=== PATIENT | male | born 1995 | race Caucasian/White ===

== ENCOUNTER 2017-07-06 07:48 | Inpatient (IN) ==
[2017-07-06] MEDS ORDERED: DIPH/TET/ACEL PERT BOOSTER VACCINE 0.5 ML VIAL IM ONE ×2 (07:52→09:03)
[2017-07-06] MEDS ORDERED: LACTATED RINGERS 1,000 ML IV STA (07:52)
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
[2017-07-06 08:11] LABS: Basophils # 0.1 10*3/uL (0.0-0.2); Basophils % 0.2 % (0.0-0.8); Hematocrit 41.6 VOL% (42.0-52.0); Hemoglobin 14.2 GM/DL (14.0-18.0); Immature Granulocytes % 0.9 %; Immature Granulocytes Absolute 0.24 #; Lymphocytes # 0.9 10*3/uL (1.4-4.0); Lymphocytes % 3.4 % (21.2-54.2); Mean Corpuscular HGB Conc 34.1 GM/DL (32-36); Mean Corpuscular Hemoglobin 29 PG (27-34); Mean Corpuscular Volume 84.7 FL (87-102); Mean Platelet Volume 10.1 FL (9.6-12.0); Monocytes # 1.9 10*3/uL (0.11-0.8); Monocytes % 7.4 % (1.7-12.7); Neutrophils # 22.5 10*3/uL (1.4-7.4); Neutrophils % 88.1 % (38.7-73.9); Platelet Count 271 T/CUMM (130-400); Red Blood Count 4.91 MC/CUMM (3.8-5.5); Red Cell Distribution Width 13.8 % (9.3-17.3); White Blood Count 25.6 T/CUMM (4-12)
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
[2017-07-06 08:37] LABS: INR 1.1; PT Patient Result 11.4 SECS; Partial Thromboplastin Time 22.9 SECS (0-40)
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
[2017-07-06 08:39] LABS: Band Neutrophils 5 % (0-10); Hypochromasia Slight; Lymphocytes 4 % (20-55); Platelet Estimate Adequate; Segmented Neutrophils 84 % (50-85); Total Cells Counted 100
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
[2017-07-06] MEDS ORDERED: SODIUM CHLORIDE 0.9% 1,000 ML IV STA (08:49)
[2017-07-06 08:52] LABS: ABG Base Excess -8.2 MMOL/L (-2.5-2.5); ABG HCO3 17.5 MMOL/L (20-26); ABG Oxygen Saturation 80.3 % (95-100); ABG PH 7.262 (7.35-7.45); ABG PO2 52.8 MM HG (80-95); ABG TCO2 16.7 MMOL/L (23-27)
[2017-07-06 08:55] LABS: Albumin 4.1 G/DL (3.4-5.0); Bilirubin,Total 0.4 MG/DL (0.2-1.0); Calcium 8.8 MG/DL (8.5-10.1); Osmolality,Calculated 284.4 MOS/KG (273-304); Potassium 4.1 MMOL/L (3.5-5.1); Total Protein 7.5 G/DL (6.4-8.3)
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
[2017-07-06 09:32] LABS: Amorphous Crystals,Urine Occasional /HPF (Few); Apearance,Urine Slightly Hazy (Clear); Bacteria,Urine Few /HPF (Few); Bilirubin,Urine Negative (Negative); Blood, Urine Moderate mg/dL (Negative); Glucose,Urine (UA) Negative (Negative); Ketones,Urine Negative (Negative); Nitrite,Urine Negative (Negative); Protein,Urine 100 MG/DL; RBC,Urine 61 /HPF (0-4); Urine Color Red (Yellow); Urine Specific Gravity 1.006 (1.001-1.035); Urine Urobilinogen < 2.0 EU/DL (0.2-1.0)
[2017-07-06 09:35] LABS: Barbiturates Screen,Urine Negative (Negative); Benzodiazepines Screen,Urine Negative (Negative); Cannabinoid Screen,Urine Negative (Negative); Opiate Screen,Urine Negative (Negative); Phencyclidine Screen,Urine Negative (Negative)
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
[2017-07-06] MEDS ORDERED: SODIUM CHLORIDE 0.9% 250 ML IV PRN (10:42)
[2017-07-06] MEDS: SODIUM CHLORIDE 0.9% 1,000 ML IV SCH ×2 (10:51→18:49)
[2017-07-06] MEDS: HYDROmorphone 2 MG/1 ML VIAL IV PRN ×3 (11:51→17:28)
[2017-07-06] MEDS: KETOROLAC 30 MG/1 ML VIAL IV SCH ×2 (11:51→17:28)
[2017-07-06 12:53] LABS: ABG Base Excess -1.2 MMOL/L (-2.5-2.5); ABG HCO3 23.3 MMOL/L (20-26); ABG Oxygen Saturation 95.9 % (95-100); ABG PCO2 38.8 MM HG (35-48); ABG PO2 81.9 MM HG (80-95); ABG TCO2 20.9 MMOL/L (23-27)
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
--- NOTE | 2017-07-06 19:14 | XRay Report ---
Exam: XR chest 1V portable Indication: Bilateral pneumonia Comparison study: Prior radiograph 07/06/2017 at 11:08 AM Findings: Similar appearance of the chest with patchy left more so than right basilar opacities. Tiny right apical pneumothorax is again suspected, unchanged. Previously noted left rib fractures are not well visualized sonographically. Impression: No significant change from prior. PROCEDURE INTERPRETED AT [facility] DEPARTMENT OF RADIOLOGY Final Report Signed by: Anibal Ko
[2017-07-07] MEDS: KETOROLAC 30 MG/1 ML VIAL IV SCH ×5 (00:05→22:43)
[2017-07-07] MEDS: SODIUM CHLORIDE 0.9% 1,000 ML IV SCH (02:50)
[2017-07-07 02:51] LABS: Basophils % 0.3 % (0.0-0.8); Eosinophils # 0.2 10*3/uL (0.0-0.87); Eosinophils % 2.7 % (0.00-10.9); Hematocrit 29.4 VOL% (42.0-52.0); Hemoglobin 10.2 GM/DL (14.0-18.0); Immature Granulocytes % 0.6 %; Immature Granulocytes Absolute 0.05 #; Lymphocytes # 1.7 10*3/uL (1.4-4.0); Mean Corpuscular HGB Conc 34.7 GM/DL (32-36); Mean Corpuscular Hemoglobin 29 PG (27-34); Mean Corpuscular Volume 84.5 FL (87-102); Mean Platelet Volume 10.4 FL (9.6-12.0); Monocytes # 0.7 10*3/uL (0.11-0.8); Monocytes % 7.9 % (1.7-12.7); Neutrophils # 6.1 10*3/uL (1.4-7.4); Neutrophils % 69.5 % (38.7-73.9); Platelet Count 142 T/CUMM (130-400); Red Blood Count 3.48 MC/CUMM (3.8-5.5); Red Cell Distribution Width 14.2 % (9.3-17.3); White Blood Count 8.7 T/CUMM (4-12)
[2017-07-07 03:26] LABS: Calcium 7.7 MG/DL (8.5-10.1); Magnesium 2.2 MG/DL (1.8-2.4); Osmolality,Calculated 278.5 MOS/KG (273-304); Potassium 4.1 MMOL/L (3.5-5.1)
[2017-07-07] MEDS: HYDROmorphone 2 MG/1 ML VIAL IV PRN ×3 (08:35→20:31)
--- NOTE | 2017-07-07 08:36 | XRay Report ---
Exam: XR chest 1V portable Date: 07/07/2017 4:00 AM Indication: Pneumothorax follow-up pulmonary contusion Comparison: 07/06/2017 Technical: AP Findings: Alveolar densities are present in the lower two thirds of the left chest. No significant pneumothorax present on the left with a tiny right apical pneumothorax present. The heart is normal in size. Mediastinum is otherwise intact. Mild pulmonary contusion alveolar density in the right perihilar region. Impression: 1. Bilateral pulmonary contusions appears similar to previous study 2. No increase in the pneumothoraces present in the left chest pneumothorax is not clearly visualized today. There is less than 1% and the right apex. 3. The left rib fractures demonstrated on CT are not well seen PROCEDURE INTERPRETED AT [facility] DEPARTMENT OF RADIOLOGY Final Report Signed by: Dr. Karri Chacon
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
[2017-07-07] MEDS: BACITRACIN OINT 28.35 GM TUBE TOP SCH (12:14)
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
[2017-07-08] MEDS: KETOROLAC 30 MG/1 ML VIAL IV SCH ×4 (06:28→23:26)
[2017-07-08] MEDS: BACITRACIN OINT 28.35 GM TUBE TOP SCH (08:47)
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
--- NOTE | 2017-07-08 14:20 | XRay Report ---
History: Pneumothorax Date: 07/08/2017 Study: Chest x-ray PA and lateral Comparison exam: 07/07/2017 There is miniscule bilateral apical pneumothorax without increase in size compared to the previous study. There is continued patchy and hazy density over the mid to lower left lung which may represent residual changes of pulmonary contusion. There is no new or worsening infiltrate. There is minimal bilateral pleural effusion. The cardiomediastinal silhouette is unchanged. Osseous structures are unchanged. Impression: Tiny bilateral apical pneumothoraces without significant change. Continued changes of pulmonary contusion on the left as before PROCEDURE INTERPRETED AT [facility] DEPARTMENT OF RADIOLOGY Final Report Signed by: Dr. Maliha Kearney
[2017-07-09] MEDS: KETOROLAC 30 MG/1 ML VIAL IV SCH (05:48)
[2017-07-09 08:34] VITALS: BP 136/83
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
== END 2017-07-09 12:30 | disposition home or self-care (01) | DRG 964 ==
LOC: EDBD → EDUNIT# → N.ED 07:48 → N.EDINP 09:06 → N.ICU 10:22 → N.3E 07-07 17:24
PROVIDERS: ADMIT Surgery; ATTEND Surgery